=== PATIENT | female | born 1980 | race Caucasian/White ===

== ENCOUNTER → 2021-04-24 13:51 | Outpatient (BNVA) | payer OTHER, SELFPAY | PROVIDERS: PCP Internal Medicine; Referring Provider Internal Medicine; Visit Provider Advanced Practice Midwife ==

== ENCOUNTER 2023-05-03 12:59 | Outpatient (REF) | payer OTHER, SELFPAY ==
[2023-05-05 21:17] LABS: HPV mRNA E6/E7 rflx Not Detected (Not Detected)
== END 2023-05-03 13:00 | disposition home or self-care (01) ==
LOC: HO.LNP 12:59
PROVIDERS: PCP Physician Assistant Medical; Visit Provider Advanced Practice Midwife
DX: Z01.419 Encounter for gynecological examination (general) (routine) without abnormal findings (principal); N84.1 Polyp of cervix uteri
CPT/HCPCS: 87624; 88142

== ENCOUNTER 2023-06-14 13:09 | Outpatient (REF) | payer OTHER, SELFPAY | END 2023-06-14 13:10 | disposition home or self-care (01) | LOC: HO.LAB 13:09 | PROVIDERS: PCP Physician Assistant Medical; Visit Provider Advanced Practice Midwife | DX: N84.1 Polyp of cervix uteri (principal) | CPT/HCPCS: 57500; 81025; 88305 ==

== ENCOUNTER 2023-06-14 13:09 | Outpatient (AMB) | payer OTHER, SELFPAY ==
--- NOTE | 2023-06-14 13:12 | A.OFFVIS_ITS ---
Intake Vital Signs 06/14/23 13:13 Height 5 ft 2 in Weight 178 lb BMI 32.6 BP 140/62 H Intake Visit Reasons: POLYPECTOMY Intake Note: The patient agreed to use of a medical social worker during this encounter. Scribed for PAYAL Pickard by Ana Boyd medical social worker, on 06/14/2023 at 1:24 am EST. Liquid Yeast Supervisor: Liquid Yeast Supervisor Present (Krystle) Allergies No Known Allergies Allergy (Verified 06/14/23 13:13) Is last menstrual period known: Yes Last menstrual period: 06/09/23 HPI HPI Comments History of Present Illness Details She presents for polypectomy due to cervical polyp. See procedure note. PFSH Medical History Cervical polyp High cholesterol Surgical History Hx of tonsillectomy Family History Sister History of breast cancer, Onset Age: 46 Social History Alcohol intake: current Alcohol intake frequency: a few times a week Patient Tobacco Use Status: Former Tobacco user Sexual orientation: Straight/Heterosexual Gender identity: Female Female Reproductive History Menstrual Date of last menstrual period: 06/09/23 Physical Exam Vital Signs: Last Vital Signs BP 140/62 H 06/14/23 13:13 BMI result Body Mass Index 32.6 Const General: cooperative, healthy appearing, comfortable, no acute distress, well developed, alert and awake Other: General: Yes bladder normal to palpation External Female Exam: normal external appearance and normal appearance of the urethra Speculum Exam - Vagina: normal appearance of the vagina, normal palpation and normal vaginal discharge Speculum Exam - Cervix: normal appearance of the cervix, normal palpation and Other cervical findings present (small cervical polyp) Bimanual exam- vagina & uterus: normal bimanual exam, normal palpation, bladder normal to palpation and normal palpation Bimanual Exam- Adnexa, other: normal adnexae and no masses Office Procedures Cervical Polypectomy Details Details: HPI She presents for polypectomy due to cervical polyp. She was counseled regarding anticipatory guidance for the procedure including bleeding, pain, infection and scarring. She was consented for the procedure, and the consent forms were signed. She is agreeable to have the procedure today. All questions were answered. She denies any allergy to shellfish. Procedure The patient was placed in the dorsal lithotomy position and a sterile speculum was inserted. The procedure was completed under aseptic technique. The cervix was cleansed with a Betadine solution x 3 swabs. A small polyp was visualized at 6 o'clock and removed with Vick clamp by grasping base and twisting off in small fragments. Minimal bleeding was observed. Patient tolerated procedure well. Removal of polyp performed today with no complications. Plan Instructions given to call if temp >100.4, flu like sx, abd pain, vaginal odor or heavy vaginal bleeding. No intimacy for 1-2 weeks until all bleeding stopping. Follow up pending results. CPT: 46863 - Cervical Polypectomy Results AMB Test Urine AMB Test Urine Negative Last Edit by DESI Newell on 06/14/23 13:49 Results Reviewed Results Reviewed: Laboratory Last Values Tst Clinic Negative 06/14/23 13:47 Assessment & Plan Assessment & Plan (1) Cervical polyp: Code(s): N84.1 - Polyp of cervix uteri Plan: See procedure note. Orders: Orders AMB HCG Urine Test Today Z32.02 - Encounter for test, result negative Surgical Today N84.1 - Polyp of cervix uteri Coding Level of Care Code Procedure Only Diagnoses Cervical polyp N84.1 CPT Codes Details - CPT: 22116 - Cervical Polypectomy ([id number])
[2023-06-14 13:13] VITALS: BP 140/62; BMI 32.6
== END 2023-06-14 13:52 | disposition home or self-care (01) ==
LOC: HO.HWS 13:09
PROVIDERS: PCP Physician Assistant Medical; Visit Provider Advanced Practice Midwife
DX: N84.1 Polyp of cervix uteri (principal); Z32.02 Encounter for pregnancy test, result negative
CPT/HCPCS: 57500

== ENCOUNTER 2024-05-17 14:41 | Outpatient (AMB) | payer OTHER, SELFPAY ==
--- NOTE | 2024-05-17 14:43 | A.OFFVIS_ITS ---
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 Doing well with no concerns. Doing well on OCPs and wishes to continue. She tries to eat healthy and stays active with exercise-walks. She denies any contraindications to control such as: migraines with aura, history of DVT or pulmonary emboli, high blood pressure, liver disease, thrombolic disorders, Lupus, +VALE, breast cancer, or smoking. Currently is sexually active. She denies vaginal itching and irritation. STI screening offered; she declined. Denies family history of breast, ovarian or colon cancer. Last pap smear 2022, negative. Mammogram: 2023-[facility], no copy on hand. [facility] Medical History Cervical polyp High cholesterol Surgical History History of loop electrical excision procedure (LEEP) Hx of tonsillectomy Family History Sister History of breast cancer, Onset Age: 46 Social History Alcohol intake: current Alcohol intake frequency: a few times a week Patient Tobacco Use Status: Former Tobacco user Sexual orientation: Straight/Heterosexual Gender identity: Female Female Reproductive History Menstrual Total pregnancies: 0 Date of last pap smear: 05/03/23 (neg pap and hpv) History of abnormal pap smear: Yes (11/13 hgsil leep 05/13 ascus) Date of Mammogram: 12/29/21 (Birad 2) Review of Systems Const All systems reviewed & are unremarkable except as noted in HPI and below Reports as per HPI Eyes Reports no additional complaints ENT Reports no additional complaints Card Reports no additional complaints Resp Reports no additional complaints GI Reports as per HPI and Reports no additional complaints Reports as per HPI Musc Reports no additional complaints Skin/Breast Reports as per HPI Neuro Reports no additional complaints Psych Reports no additional complaints Endo Reports no additional complaints Edi/Lymph Reports no additional complaints Aller/Immun Reports no additional complaints Physical Exam Vital Signs: Last Vital Signs BP 122/84 05/17/24 14:45 BMI result Body Mass Index 28.3 Const General: cooperative, healthy appearing, no acute distress, well developed and alert Orientation/consciousness: patient oriented x3 HEENT Head: Yes normal to inspection Eyes General: appearance normal, both eyes and all related structures Neck Neck: Yes normal visual inspection Thyroid: Thyroid normal Chest Chest palpation & inspection: normal inspection of the chest and other (no puckering, dimpling, peau de orange, retraction, discharge, masses) Breast/axilla inspection: normal inspection of the breasts Breast/axilla palpation: normal palpation of the breasts Resp Effort & Inspection: normal respiratory effort GI Inspection: Yes normal to inspection Palpation (GI): Soft to palpation Rectal Exam - Female: deferred General: Yes bladder normal to palpation External Female Exam: normal external appearance and normal appearance of the urethra Speculum Exam - Vagina: normal appearance of the vagina, normal palpation and normal vaginal discharge Speculum Exam - Cervix: normal appearance of the cervix and normal palpation Bimanual exam- vagina & uterus: normal bimanual exam, normal palpation, uterine size normal, bladder normal to palpation, normal palpation and non-tender Bimanual Exam- Adnexa, other: no masses Skin General skin exam: no rashes or lesions noted Rashes: no rashes Neuro General: patient oriented x3 Cognition (Neuro): normal cognition Extrem General: Yes normal to inspection Psych Attitude: cooperative Thought process: Normal thought process present Assessment & Plan Assessment & Plan (1) Encounter for well woman exam with routine gynecological exam: Code(s): Z01.419 - Encounter for gynecological examination (general) (routine) without abnormal findings Category: Medical Plan Discussed: Current recommendations for pap smears per ASCCP guidelines. Breast awareness and periodic breast exams. Maintain a healthy lifestyle including a well balanced diet and routine exercise. Use condoms for STI and prevention. Mammogram yearly. control hormone use warnings: go to ER if and loss of vision, blindness, severe headache, chest pain or difficulty breathing, severe abdominal pain, or any pain or swelling in an extremity. Colonoscopy >45, or at risk sooner. Patient verbalizes understanding and agrees to the plan of care. She was given opportunity to ask questions and all questions were answered to the best of my ability. RTO in one year for annual recruitment consultant examination. This note is constructed using voice recognition software. While every effort has been made to ensure accuracy, gravity prospecting operator helper errors may have been included. Medications: Refilled levonorgestrel-ethinyl estrad 0.15 mg-30 mcg (91) 1 tab PO DAILY 91 ea 4RF Coding Level of Care Code Est Pt Prev Care 40-64y(79530) Diagnoses Encounter for well woman exam with routine gynecological exam Z01.419
[2024-05-17 14:45] VITALS: BP 122/84; BMI 28.3
== END 2024-05-17 15:28 | disposition home or self-care (01) ==
PROVIDERS: PCP Physician Assistant Medical; Visit Provider Advanced Practice Midwife
DX: Z01.419 Encounter for gynecological examination (general) (routine) without abnormal findings (principal)
CPT/HCPCS: 99396

== ENCOUNTER 2024-12-27 09:12 | Outpatient (AMB) | payer OTHER, SELFPAY ==
[2024-12-27 09:17] VITALS: BP 118/70; BMI 26.5
--- NOTE | 2024-12-27 09:17 | A.OFFVIS_ITS ---
Vital Signs 12/27/24 09:17 Height 5 ft 2 in Weight 145 lb BMI 26.5 BP 118/70 Intake Visit Reasons: concerning discharge Communications Programmer Required: No Communications Programmer Services: Communications Programmer Present Information Interpreted: clinical only Screen Tender: Screen Tender Present Allergies No Known Allergies Allergy (Verified 12/27/24 09:20) Medication List - Last Reconciled 12/27/24 by Lucie Serrano CNM atorvastatin 20 mg PO DAILY levonorgestrel-ethinyl estrad 0.15 mg-30 mcg (91) 1 tab PO DAILY semaglutide (weight loss) (Wegovy) 2.4 mg subcut QWEEK Is last menstrual period known: Yes Last menstrual period: 12/06/24 HPI HPI concerning discharge: Details: To check her discharge it just feels a little bit different and she thought it had a little bit of an odor and she would just like to get it checked she is open to STI testing.. She is on Wegovy and has been for about 6 months and she has lost about 45 lb and her cholesterol is improving and she is feeling good. She is on the sequential OCPs where she gets her period every 3 months she is not having any negative side effects this works very well for her and her period was about 3 weeks ago and she is not having any issues with that at all. She normally sees Latasha Diaz for her booster pump operator annual exams she had a history of a LEEP in the past and her most recent Pap was negative with negative HPV in 2022. [facility] Medical History (Updated 12/27/24 @ 09:59 by Lucie Serrano CNM) Cervical polyp High cholesterol Surgical History (Updated 12/27/24 @ 09:59 by Lucie Serrano CNM) History of loop electrical excision procedure (LEEP) Hx of tonsillectomy Family History Sister History of breast cancer, Onset Age: 46 Social History Alcohol intake: current Alcohol intake frequency: a few times a week Patient Tobacco Use Status: Former Tobacco user Sexual orientation: Straight/Heterosexual Gender identity: Female Female Reproductive History Menstrual Age of Menarche: 13 Duration of menses: 3-5 days Date of last menstrual period: 12/06/24 control method: pills Date of last pap smear: 05/03/23 (negative) Physical Exam Vital Signs: Last Vital Signs BP 118/70 12/27/24 09:17 BMI result Body Mass Index 26.5 External Female Exam: normal external appearance and normal appearance of the urethra Speculum Exam - Vagina: normal appearance of the vagina and normal vaginal discharge Speculum Exam - Cervix: normal appearance of the cervix and Cervical os closed Assessment & Plan Assessment & Plan (1) Problematic vaginal discharge: Code(s): N89.8 - Other specified noninflammatory disorders of vagina Category: Medical (2) History of loop electrical excision procedure (LEEP): Comment: 11/13 hgsil leep 05/13 ascus Code(s): Z98.890 - Other specified postprocedural states Category: Surgical Plan ---Discussed the current research around the phenomena of bacterial vaginosis, and the many factors involved in the increase and change in the prevalence of certain bacteria in the vagina, that contribute to the clingy discharge, the fishy malodor, and the discomfort, that many women experience very frequently in their lives. Discussed the many factors that can promote it, and current thinking about best options for treatment of both the a 1 time episode, or frequently occurring episodes. Discussed the role of partner condom use. Dis cussed that previously, treatment was recommended for both partners, but is not currently recommended today in 2024. Discussed the testing involved. Discussed treatment options including Flagyl, metronidazole gel, boric acid capsules and others. Discussed the limitations of our current testing regimens. Reviewed findings with the patient. I had the appearance of the discharge my best assessment is that it is not indicative of bacterial vaginosis which I described to her. However if the test comes back positive she will be offered treatment and she can either accept or decline based on her symptoms at the time. We will see her p.r.n. or for her annual exams as scheduled which I believe she has scheduled with Latasha Diaz.. Also reviewed her normal anatomy. Congratulated on her weight loss. RTC p.r.n. and for annual as scheduled which I believe she has scheduled. Coding Level of Care Code Est Pt Level 3 (02099) Diagnoses Problematic vaginal discharge N89.8 History of loop electrical excision procedure (LEEP) Z98.890
--- OUTSIDE RECORDS SUMMARY | 2024-12-27 09:55 | XMS_ITS | Clinical Summary ---
Author Organization [facility] [address] [place] [address] [place] [phone] Phone Care Team Providers Care Cyber Security Instructor Name Role Phone Jovany Lopez Primary Care Provider [phone] Allergies No known active allergies Medications atorvastatin (LIPITOR) 20 mg tabletIndication s:Hyperlipidemia , unspecified TAKE 1 TABLET BY MOUTH EVERY DAY 90 tablet 3 09/19/2024 Active atorvastatin (LIPITOR) 20 mg tablet Take 1 tablet (20 mg total) by mouth 1 (one) time each day. Active Wegovy 2.4 mg/0.75 mL injection pen 09/11/2024 Activ e norgestimate-eth inyl estradiol (ORTHO TRI-CYCLEN, 28, ORAL) Take 1 Tab by mouth daily. Active Active Problems Problem Noted Date Diagnosed Date Sexual dysfunction 11/09/2017 Obesity 06/24/2014 Hyperlipidemia with target LDL less than 130 Overview (09/19/2024): IMO update Pericardial effusion 08/30/2012 Overview (09/19/2024): Echo 01/2012 LEVF 60-65%, small generalized pericardial effusion unchanged from prior echos. 08/2010 normal TSH, rheum factor, VALE, lyme screen, Mildly elevated ESR 08/2010 at 27 Encounters Date Type Department Care Team Description 10/24/2024 1:30 PM EST Office Visit Adult Medicine [address] [place] [address] Jovany Lopez PA Hyperlipidemia with target LDL less than 130 (Primary Dx); Obesity, unspecified class, unspecified obesity type, unspecified whether serious comorbidity present; Pericardial effusion from Last 3 Months Immunizations Name Administration Dates Next Due Tdap Tetanus diptheria acell ular pertussis (Boostrix; Adacel) 7yo and older 02/15/2012 Surgical History Surgery Date Site/Laterality Comments TONSILLECTOMY PROCEDURE: HISTORICAL TONSILLECTOMY WISDOM TOOTH EXTRACTION PROCEDURE: HISTORICAL WISDOM TEETH EXTRACTION Medical History Medical History Date Comments Pericardial effusion 08/30/2012 DX:Pericard ial effusion Hyperlipidemia with target L DL less than 130 03/22/2013 DX:Hyperlipidemia with targe t LDL less than 130; COMMENT: IMO update Obesity 06/24/2014 DX:Obesity Sexual dysfunction 11/09/2017 DX:Sexual dys function Family History Medical History Relation Name Comments Other: healthy Father Diabetes Grandparent Lung cancer Mother smoker Heart attack Paternal Grandfather Breast cancer Sister sister negativ e for genetic syndromes Relation Name Status Comments Father Alive Grandparent Mother Alive Paternal Grandfather Sister Alive Social History Tobacco Use Types Packs/Day Years Used Date Smoking Tobacco: Former Cigarettes Q uit: 11/07/2006 Smokeless Tobacco: Never Tobacco Cessation:Counseling Given: Not Answered Alcohol Use Standard Drinks/Week Comments Yes 0 (1 standard drink = 0.6 oz pur e alcohol) Comments Unknown Sex and Gender Information Value Date Recorded Sex Assigned at Not on file Legal Sex Female 8:44 AM EST Gender Identity Not on file Sexual Orientation Not on file Obstetrics History Last Filed Vital Signs Vital Sign Reading Time Taken Comments Blood Pressure 121/80 10/24/2024 1:42 PM EST Pulse 69 10/24/2024 1:42 PM EST Temperature 36.8 ??C (98.2 ??F) 10/24/2024 1:42 PM ES T Respiratory Rate 14 10/24/2024 1:42 PM EST Oxygen Saturation - - Inhaled Oxygen Concentration - - Weight 65.8 kg (145 lb) 10/24/2024 1:42 PM EST Height 157.5 cm (5' 2 ) 10/24/2024 1:42 PM EST Body Mass Index 26.52 10/24/2024 1:42 PM EST Plan of Treatment Upcoming Encounters Date Type Department Care Team (Late st Contact Info) Description 04/16/2025 3:00 PM EDT Office Visit Adult Medicine [facility] [address] [place] [address] Jovany Lopez PA [address] [place] [address] Health Maintenance Due Date Last Done Comments Hepatitis B Vaccines (1 of 3 - 19+ 3-dose series) 01/26/2000 DTaP,Tdap,and Td Vaccines (2 - Td or Tdap) 02/14/2022 02/15/2012 Social Influencers of Health Screening 10/16/2022 COVID-19 Vaccine (2 - 2023-2 5 season) 2024 03/13/2021 Influenza Vaccine (#1) 2024 Cervical Cancer Screening: P ap Smear 04/29/2025 04/29/2022 Depression Screening 10/23/2025 10/23/2024 Breast Cancer Screening 10/15/2026 10/15/2024 Cholesterol Screening (Lipid Panel) 10/22/2029 10/22/2024, 03/06/2024, 03/06/2024 HIV Screening Completed 10/22/2024 Hepatitis C Screening Completed 10/22/2024 HIB Vaccines Aged Out No longer eligi ble based on patient's age to complete this topic HPV Vaccines Aged Out No longer eligi ble based on patient's age to complete this topic Hepatitis A Vaccines Aged Out No long er eligible based on patient's age to complete this topic IPV Vaccines Aged Out No longer eligi ble based on patient's age to complete this topic MMR Vaccines Aged Out No longer eligi ble based on patient's age to complete this topic Meningococcal ACWY Vaccine Aged Out N o longer eligible based on patient's age to complete this topic Meningococcal B Vacine Aged Out No lo nger eligible based on patient's age to complete this topic Pneumococcal Vaccine: Pediatrics (0 to 5 Years) and At-Risk Patients (6 to 64 Years) Aged Out No longer eligible b ased on patient's age to complete this topic RSV Immunization Patients Under 20 months Aged Out No longer eligible b ased on patient's age to complete this topic Varicella Vaccines Aged Out No longer eligible based on patient's age to complete this topic Procedures Procedure Name Priority Date/Time Associated Diagnosis Comments COMPREHENSIVE METABOLIC PANEL Routine 10/22/2024 11:30 AM EST Hyperlipidemia with target LDL less than 130 Obesity, unspecified class, unspecified obesity type, unspecified whether serious comorbidity present HEPATITIS C ANTIBODY Routine 10/22/2024 11:30 AM EST Hyperlipidemia with target LDL less than 130 Obesity, unspecified class, unspecified obesity type, unspecified whether serious comorbidity present HIV 1, 2 ANTIBODY, P24 ANTIGEN WITH REFLEX TO DIFFERENTIATION Routine 10/22/2024 11:30 AM EST Hyperlipidemia with target LDL less than 130 Obesity, unspecified class, unspecified obesity type, unspecified whether serious comorbidity present LIPID PANEL WITH REFLEX TO DIRECT LDL Routine 10/22/2024 11:30 AM EST Hyperlipidemia with target LDL less than 130 Obesity, unspecified class, unspecified obesity type, unspecified whether serious comorbidity present HM PAP SMEAR Routine 04/29/2022 from Last 3 Months or Most Recently Relevant to Health Maintenance Results * Hepatitis C antibody (10/22/2024 11:30 AM EST) [facility] Hepatitis C Antibody Negative Negative LAB CHEMISTRY METHOD 10/22/2024 8:01 PM EST [facility] Blood Venous blood specimen / Unknown Venipuncture / Unknown 10/22/2024 11:30 AM EST 10/22/2024 11:30 AM EST us Jovany PAGE LAB BLOOD ORDERABLES Charlene rodríguez Result [facility] [address] [place] [address], * HIV 1,2 antibody, p24 antigen with reflex to differentiation (10/22/2024 11:30 AM EST) [facility] HIV Combo AB/AG Negative Negative LAB CHEMISTRY METHOD 10/22/2024 8:02 PM [facility] Blood Venous blood specimen / Unknown Venipuncture / Unknown 10/22/2024 11:30 AM EST 10/22/2024 11:[address] [facility] - 10/22/2024 8:02 PM EST This assay is a 4th generation assay allowing for earlier detection of HIV infection by detecting the presence of the HIV-1 p24 antigen as well as the traditional antibodies to HIV type 1 (including group O) and type 2. ??Use of a 4th generation assay is the current CDC recommendation for HIV screening. Jovany PAGE LAB BLOOD ORDERABLES Charlene rodríguez Result [facility] [address] [place] [address], * Lipid panel with reflex to direct LDL (10/22/2024 11:30 AM EST) [facility] Cholesterol 174 0 - 200 mg/dL LAB CHEMISTRY METHOD 10/22/2024 7:27 PM [facility] Triglycerides 84 0 - 150 mg/dL LAB CHEMISTRY METHOD 10/22/2024 7:27 PM [facility] HDL 57 >=40 mg/dL LAB CHEMISTRY METHOD 10/22/2024 7:27 PM [facility] LDL Calculated 100 0 - 100 mg/dL LAB CHEMISTRY METHOD 10/22/2024 7:27 PM [facility] VLDL Cholesterol Júnior 16.8 mg/dL LAB CHEMISTRY METHOD 10/22/2024 7:27 PM [facility] Non HDL Chol. (LDL+VLDL) 117 <145 mg/dL LAB CHEMISTRY METHOD 10/22/2024 7:27 PM [facility] Chol/HDL Ratio 3.1 0.0 - 4.4 LAB CHEMISTRY METHOD 10/22/2024 7:27 PM [facility] Blood Venous blood specimen / Unknown Venipuncture / Unknown 10/22/2024 11:30 AM EST 10/22/2024 11:30 AM EST us Jovany PAGE LAB BLOOD ORDERABLES Charlene l Result [facility] [address] [place] [address], * Comprehensive metabolic panel (10/22/2024 11:30 AM EST) Sodium 139 133 - 145 mmol/L LAB CHEMISTRY METHOD 10/22/2024 7:27 PM [facility] Potassium 4.2 3.5 - 5.5 mmol/L LAB CHEMISTRY METHOD 10/22/2024 7:27 PM [facility] Chloride 108 96 - 110 mmol/L LAB CHEMISTRY METHOD 10/22/2024 7:27 PM [facility] CO2 23 21 - 32 mmol/L LAB CHEMISTRY METHOD 10/22/2024 7:27 PM [facility] Anion Gap 8 3 - 11 LAB CHEMISTRY METHOD 10/22/2024 7:27 PM [facility] Glucose 81 70 - 100 mg/dL LAB CHEMISTRY METHOD 10/22/2024 7:27 PM [facility] BUN 10 5 - 25 mg/dL LAB CHEMISTRY METHOD 10/22/2024 7:27 PM [facility] Creatinine 0.76 0.50 - 1.10 mg/dL LAB CHEMISTRY METHOD 10/22/2024 7:27 PM [facility] eGFR 100 >=60 mL/min/1. 73m2 LAB CHEMISTRY METHOD 10/22/2024 7:27 PM [facility] Comment:Calculation based on the??Chronic Kidney Disease Epidemiology Collaboration (CKD-EPI) equation refit??without adjustment for race. BUN/Creatinine Ratio 13.2 LAB CHEMISTRY METHOD 10/22/2024 7:27 PM [facility] Calcium 9.1 8.5 - 10.5 mg/dL LAB CHEMISTRY METHOD 10/22/2024 7:27 PM [facility] AST (SGOT) 16 10 - 42 unit/L LAB CHEMISTRY METHOD 10/22/2024 7:27 PM [facility] ALT (SGPT) 22 10 - 60 unit/L LAB CHEMISTRY METHOD 10/22/2024 7:27 PM [facility] Alkaline Phosphatase 66 42 - 121 unit/L LAB CHEMISTRY METHOD 10/22/2024 7:27 PM [facility] Total Protein 7.0 6.0 - 8.0 g/dL LAB CHEMISTRY METHOD 10/22/2024 7:27 PM [facility] Albumin 3.7 3.2 - 5.0 g/dL LAB CHEMISTRY METHOD 10/22/2024 7:27 PM [facility] Total Bilirubin 0.4 0.0 - 1.4 mg/dL LAB CHEMISTRY METHOD 10/22/2024 7:27 PM [facility] Blood Venous blood specimen / Unknown Venipuncture / Unknown 10/22/2024 11:30 AM EST 10/22/2024 11:30 AM EST Jovany PAGE LAB BLOOD ORDERABLES Charlene l Result [facility] [address] [place] [address], [place] [phone] * Pap Smear (04/29/2022) Pap smear no interpretation , abstracted Historical Provider MD HEALTH MAINTENANCE Final Result from Last 3 Months or Most Recently Relevant to Health Maintenance Insurance [facility] Care Teams Cyber Security Instructor Relationship Specialty Start Date End Date Jovany Lopez PA [address] [facility] [place] [id number] PCP - General Internal Medicine 03/17/21
== END 2024-12-27 10:18 | disposition home or self-care (01) ==
PROVIDERS: PCP Physician Assistant Medical; Visit Provider Advanced Practice Midwife
DX: N89.8 Other specified noninflammatory disorders of vagina (principal); Z98.890 Other specified postprocedural states
CPT/HCPCS: 99213